=== PATIENT | male | born 1955 | race Hispanic/Latino ===

== ENCOUNTER 2021-03-15 09:48 | Day surgery (SDC) | payer OTHER ==
[2021-03-13 10:34] LABS: BASOPHILS % (AUTO) 0.5 % (0.0-5.0); EOSINOPHILS % (AUTO) 2.1 % (0.0-8.0); HEMATOCRIT 41.3 % (42-54); LYMPHOCYTES % (AUTO) 23.8 % (21.0-51.0); MEAN CORPUSCULAR HEMOGLOBIN 27.8 pg (27.0-33.0); MEAN CORPUSCULAR HGB CONC 32.7 g/dL (32.0-36.0); MEAN CORPUSCULAR VOLUME 85.2 fL (79-99); MONOCYTES % (AUTO) 5.5 % (3.0-13.0); NEUTROPHILS % (AUTO) 67.8 % (40.0-77.0); PLATELET COUNT (AUTO) 326 K/uL (130-400); RED BLOOD CELL COUNT(AUTO) 4.85 MIL/uL (4.50-6.20); RED CELL DISTRIBUTION WIDTH 13.6 % (11.0-15.5); WHITE BLOOD COUNT (AUTO) 8.7 K/uL (4.8-10.8)
[2021-03-13 10:40] LABS: CREATININE 0.6 mg/dL (0.5-1.5); POTASSIUM 3.8 mmol/L (3.5-5.1)
[2021-03-13 10:43] LABS: INR 1.05 (0.85-1.15); PROTHROMBIN TIME 11.4 SEC (9.6-11.6)
[2021-03-13 10:45] LABS: PARTIAL THROMBOPLASTIN TIME 28.5 SEC (26.3-35.5)
[2021-03-14 10:43] VITALS: BP 198/69
[~2021-03-15] VITALS: Ht 160 cm; Wt 80.8 kg
[2021-03-15] VITALS (19 sets, daily range): BP systolic 105–154; BP diastolic 55–84
[~2021-03-15 09:48] MED LIST: LISI10TA24 PO; MELO-106 PO
[2021-03-15] MEDS ORDERED: LACTATED RINGERS 1000ML 1,000 ML IV ONE (09:52)
[2021-03-15] MEDS ORDERED: LIDOCAINE PF 100MG/5ML (2%) SYRINGE 5ML ONE (10:27)
[2021-03-15] MEDS: CEFAZOLIN SODIUM 1 GM VIAL IVP SCH ×2 (10:27→10:57)
[2021-03-15] MEDS ORDERED: SUCCINYLCHOLINE CHLORIDE 20 MG/ML 10 ML VIAL ONE (10:27)
[2021-03-15] MEDS ORDERED: PROPOFOL 10 MG/ML 20ML VIAL IV ONE (10:29)
[2021-03-15] MEDS ORDERED: FENTANYL CITRATE PF 50 MCG/1 ML 2ML VIAL ONE ×2 (10:29→11:17)
[2021-03-15] MEDS ORDERED: CEFAZOLIN SODIUM 1 GM VIAL ONE (10:35)
[2021-03-15] MEDS ORDERED: GLYCOPYRROLATE 1 MG/5 ML SYRINGE ONE (11:04)
[2021-03-15] MEDS ORDERED: BUPIVACAINE/EPI/PF 0.5% 30ML VIAL IJ ONE (11:10)
[2021-03-15] MEDS ORDERED: MEPERIDINE-PF 25 MG/ML SYG ONE (11:13)
[2021-03-15] MEDS ORDERED: KETOROLAC 30MG VIAL (30MG/ML) ONE (11:16)
[2021-03-15] MEDS ORDERED: BACITRACIN 28.4 GM OINT TP ONE (11:18)
== END 2021-03-15 13:55 | disposition home or self-care (01) ==
LOC: DAH 09:48
PROVIDERS: ATTEND Surgery
DX: R22.2 Localized swelling, mass and lump, trunk (principal); L72.0 Epidermal cyst; I10 Essential (primary) hypertension; J44.9 Chronic obstructive pulmonary disease, unspecified; I45.10 Unspecified right bundle-branch block; Z79.01 Long term (current) use of anticoagulants; Z79.899 Other long term (current) drug therapy
CPT/HCPCS: 11403; 11406; 36415; 71045; 80048; 85025; 85610; 85730; 87635; 88304; 93005; A4215; A4221; A4222; A4223; A4600; A4606; A4663; A6260; C9803; J0330; J0690 ×2; J1885; J2001; J2175; J2704; J3010 ×2; J3490 ×2; J7120